=== PATIENT | male | born 1980 | race Caucasian/White ===

== ENCOUNTER 2025-06-21 13:03 | Emergency (ER) | payer OTHER, SELFPAY ==
--- NOTE | ~2025-06-21 | XR_ITS ---
Clinical history:Cough for weeks EXAM:X-ray chest 2 views TECHNIQUE:Frontal and lateral images of the chest were obtained. Comparisons:None available FINDINGS: Heart is not enlarged. No pneumothorax. No pleural effusion. No free air under the diaphragm. Small opacities in the lower lungs. IMPRESSION: 1.Small opacities in the lower lungs which represents atelectasis/scarring or infiltrates. If symptoms persist or worsen, consider a short-term follow-up study or additional imaging for further assessment. Reviewed, dictated and finalized at location Q. IMPRESSION: 1.Small opacities in the lower lungs which represents atelectasis/scarring or i nfiltrates. If symptoms persist or worsen, consider a short-term follow-up study or additio nal imaging for further assessment.
[2025-06-21 13:12] VITALS: BP 111/69; PULSE 104; RESP 18; TEMP 38; O2SAT 95
--- NOTE | 2025-06-21 13:42 | ED_ITS ---
HPI - URI/Sore Throat General Chief Complaint: Upper Respiratory Infection Stated Complaint: Cold Symptoms Time Seen by Provider: 06/21/25 13:42 Source: patient Mode of arrival: ambulatory Limitations: no limitations History of Present Illness HPI Narrative: 45 yo M presents with c/o cough for 4 wks. Did a telehealth visit a little over a week ago and finsih course of augmentin. Still coughing, fever for 4 days, fatigue, bodyaches, chills. pt concerned for pneumonia. All systems reviewed and negative except as noted above. Related Data Allergies Allergy/AdvReac Type Severity Reaction Status Date / Time No Known Allergies Allergy Mild Verified 06/21/25 13:10 PMFSH Comments At time of signature, agree with nursing past medical, surgical, social and family history. There is no relevant family history pertinent to the presenting complaint. Exam Narrative: GENERAL: This is a well-nourished, well-developed patient, Patient is pale, ill-appearing but no acute distress HEAD: normocephalic, atraumatic. EYES: PERRL. Sclera clear/white. Vision is grossly intact. EARS: External ears normal, auditory canals clear and without drainage, TMs normal without perforation. Hearing grossly intact. NOSE: External nose normal with no obvious nasal discharge, nares without redness, no rhinorrhea. THROAT: Mucous membranes moist, posterior pharynx clear. NECK: Neck supple, non-tender without lymphadenopathy, masses or thyromegaly. CARDIOVASCULAR: Regular rate and rhythm without murmurs, gallops, or rubs. RESPIRATORY: rales to bilateral lower lung ledesma, Breath sounds equal bila terally. No wheezes or rhonchi. SKIN: warm, Dry, intact with no suspicious lesions or rash, good texture and turgor. NEURO: awake, alert, and oriented to person, place and time. There were no obvi ous focal neurologic abnormalities. EXTREMITIES: No joint tenderness, effusion, or edema noted. Course Course Level of Care: Express Care Visit Vital Signs Vital signs: Vital Signs Temperature 38.0 C H 06/21/25 13:12 Pulse Rate 104 H 06/21/25 13:12 Respiratory Rate 18 06/21/25 13:12 Blood Pressure 111/69 06/21/25 13:12 Pulse Oximetry 95 06/21/25 13:12 Temperature 38.0 C H 06/21/25 13:12 Pulse Rate 104 H 06/21/25 13:12 Respiratory Rate 18 06/21/25 13:12 Blood Pressure 111/69 06/21/25 13:12 Pulse Oximetry 95 06/21/25 13:12 reviewed MDM - URI/Sore Throat MDM Narrative Medical decision making narrative: small base days to bilateral lower lung ledesma concerning for atelectasis versus pneumonia. Due to patient's symptoms, duration of cough, fever for 4 days will treat with antibiotic for pneumonia. Patient agrees with plan of c are. Recommend follow-up with primary care physician in 1 week. Differential Diagnosis Differential diagnosis: Likely upper respiratory infection, viral infection and other ( Pneumonia) Imaging Data My impression: agree with radiologist Radiologist's impression: Clinical history:Cough for weeks EXAM:X-ray chest 2 views TECHNIQUE:Frontal and lateral images of the chest were obtained. Comparisons:None available FINDINGS: Heart is not enlarged. No pneumothorax. No pleural effusion. No free air under the diaphragm. Small opacities in the lower lungs. IMPRESSION: 1.Small opacities in the lower lungs which represents atelectasis/scarring or infiltrates. If symptoms persist or worsen, consider a short-term follow-up study or additional imaging for further assessment. Discharge Plan Discharge Clinical Impression: Pneumonia Patient Disposition: Home Condition: Stable Instructions: Antibiotic Form, Community Acquired Pneumonia (ED) Additional Instructions: Take medications as prescribed. Take [id number] Mucinex as directed on packaging. Drink at least 64 oz of water a day. Follow-up with primary care physician if symptoms are not improving. Patient Language: Romansh Prescriptions: New azithromycin 250 mg tablet See Rx Instructions .ROUTE .COMPLEX Qty: 6 0RF Rx Instructions: For 250 mg dose pack: take 500 mg today (day 1), then 250 mg for 4 days (days 2-5) prednisone 20 mg tablet 40 mg PO DAILY 5 Days Qty: 10 0RF albuterol sulfate 90 mcg/actuation HFA aerosol inhaler 2 puff inhalation Q4-6H PRN (Reason: shortness of breath or wheezing) Qty: 8.5 0RF (DME) Aerochamber Plus Z Stat Spacer See Rx Instructions .Route Qty: 1 0RF Rx Instructions: As directed Follow-up/Referrals: PHYSICIAN,EGG CASER [Primary Care Provider, Internal Medicine] Stand Alone Forms: Work/School Release IP Time of Disposition: 14:10
== END 2025-06-21 14:16 | disposition home or self-care (01) ==
PROVIDERS: Emergency Provider Nurse Practitioner Family
DX: J18.9 Pneumonia, unspecified organism (principal)
CPT/HCPCS: 71046; 99213; G0463